=== PATIENT | male | born 1950 | race Caucasian/White ===

== ENCOUNTER → 2019-10-15 13:09 | Outpatient (CLI) | payer MEDICARE ==
[2019-10-17 03:07] LABS: ANA REFLEX - DIRECT Negative (Negative)
[2019-10-21 10:09] LABS: A. FUMIGATUS #1 ABS Negative (Negative); PNEUM - A PULLULANS ABS Negative (Negative); PNEUM - MICROPOLY FAENI ABS Negative (Negative); PNEUM - PIGEON SERUM ABS Negative (Negative); PNEUM - THERMOA VULGARIS #1 Negative (Negative); PNEUM - THERMOACT SACCHARII Negative (Negative)
== END | disposition home or self-care (01) ==
LOC: D.LABREF 13:09
PROVIDERS: ATTEND Internal Medicine Pulmonary Disease
DX: J84.10 Pulmonary fibrosis, unspecified (principal)

== ENCOUNTER → 2019-11-07 08:40 | Outpatient (CLI) | payer OTHER ==
[2019-11-08 06:09] LABS: ANA REFLEX - DIRECT Negative (Negative)
--- NOTE | 2019-11-11 11:54 | EC ---
PATIENT:CRISELDA CHAVARRIA DATE OF SERVICE: 11/07/19 SEX: M MEDICAL RECORD: [id number] DATE OF : [birth year] [facility] AGE OF PATIENT: 68 ADMISSION DATE: 11/07/19 REFERRING PHYSICIAN: INTERPRETING PHYSICIAN: WHITLEY VILLALPANDO MD ECHOCARDIOGRAM REPORT ECHO CHARGES 4 ECHO COMPLETE Date: 11/07/19 CLINICAL DIAGNOSIS: DYSPNEA, RECENT SVT ECHOCARDIOGRAPHIC MEASUREMENTS (adult normal given) AC root (d.<3.7cm) 3.4 cm LV Septum d (<1.2 cm> 1.5 cm Valve Excursion 1.5 cm LV Septum (systole) 1.7 cm Left Atria (s.<4.0cm> 3.5 cm LVPW d(<1.2cm) 1.6 cm RV (d.<2.3cm) 4.2 cm LVPW (sytole) 1.9 cm LV diastole(<5.6CM) 4.4 cm MV E-F(>70mm/sec) cm LV systole 3.0 cm LVOT Diameter 1.8 cm MV exc.(>10mm) 2.0 cm Est.ejection fraction (50-75%) % DOPPLER: LVIT cm/sec A 108.0cm/sec E 79.0 cm/sec LA cm/sec RVSP 2.0 mmHg LVOT 105 cm/sec AOP1/2T m/s Asc. Ao 138 cm/sec RVOT 83 cm/sec RA cm/sec PA 117 cm/sec AV Gradient Peak 7.60 mmHg AV Mean 3.77 mmHg AV Area 2.2 cm MV Gradient Peak 5.44 mmHg MV Mean 2.08 mmHg MV Area cm COMMENTS: Heater Room Helper: 2 HUNTER SHAFFER Strategy Manager: 1 Dr. Villalpando TAPE# PACS Pericardial Effusion N DATE OF SERVICE: ECHOCARDIOGRAM FINDINGS: 1. Left ventricular chamber size is within normal limits. Left ventricular systolic function is normal at 50-55%. 2. Left atrium, right atrium, and right ventricular chamber sizes are within normal limits. 3. Valvular structures have normal structure and motion. ECHOCARDIOGRAM REPORT [id number] CRISELDA CHAVARRIA 4. Doppler interrogation reveals trace aortic insufficiency, trace mitral regurgitation, mild tricuspid regurgitation, no other valvular insufficiency or stenosis. Pulmonary systolic pressure estimated at 30 mmHg. 5. No evidence of pericardial effusion or left ventricular thrombus. TRANSINT:[id number] Voice Confirmation ID: [id number] DOCUMENT ID: [id number] WIHTLEY VILLALPANDO MD at 1154 CC: [id number] DICTATION DATE: 11/08/19 1002 TEAM MANAGER: 11/08/19 1230 DEP CLI 11/07/19 [place] [id number]
== END | disposition home or self-care (01) ==
LOC: D.RT 10-30 09:00 → D.ECHO 10-30 10:05 → D.LAB 10-30 10:45 → D.ECHO 08:40 → D.RT 11-08 11:00
PROVIDERS: ATTEND Internal Medicine Pulmonary Disease
DX: J44.9 Chronic obstructive pulmonary disease, unspecified (principal); R06.00 Dyspnea, unspecified; J84.10 Pulmonary fibrosis, unspecified

== ENCOUNTER → 2020-06-03 10:40 | Outpatient (CLI) | payer OTHER | END | disposition home or self-care (01) | LOC: D.RT 10:40 | PROVIDERS: ATTEND Internal Medicine Pulmonary Disease | DX: J84.112 Idiopathic pulmonary fibrosis (principal) ==